=== PATIENT | female | born 1990 | race American Indian/Alaskan Native ===

== ENCOUNTER 2016-12-28 13:09 | Emergency (ER) | payer MEDICAID ==
[2016-12-28 13:17] VITALS: BP 116/84
[2016-12-28] MEDS ORDERED: DUONEB 0.5 MG-3 MG/3 ML SOLN IH ONE (13:18)
--- NOTE | 2016-12-28 14:25 | XRay Report ---
CHEST 2 VIEWS INDICATION: Wheezing, cough, shortness of breath. COMPARISON: None similar. FINDINGS: PA and lateral chest radiographs demonstrate normal cardiomediastinal silhouette. Clear lungs. Intact bones. Bilateral nipple piercings. CONCLUSION: No acute disease in the chest. Thank you for the opportunity to participate in this patient's care.
[2016-12-28] MEDS ORDERED: ROCEPHIN IM ONE (15:08)
[2016-12-28] MEDS ORDERED: XYLOCAINE 1% MPF 5 mL INFILTRATI ONE (15:08)
--- NOTE | 2016-12-28 15:21 | Emergency Department Report ---
- General Chief Complaint: Adult Asthma Stated Complaint: SOB,PNEUMONIA Time Seen by Provider: 12/28/16 14:54 Source: patient Mode of arrival: Ambulatory Limitations: No Limitations - History of Present Illness Initial Comments: Patient comes into the ER today with complaints of wheezing, shortness of breath , sinus congestion for the past couple days. Patient states that last night she started getting very hard to breathe with wheezing. Patient denies any history of asthma. Patient does state that she has been coughing up some green phlegm with the cough. MD Complaint: cough, sore throat, rhinorrhea, nasal congestion -: days(s) (2) Severity: moderate Associated Symptoms: chills, rhinorrhea, nasal congestion, sore throat, cough, shortness of breath. denies: chest pain, abdominal pain, nausea, vomiting, diarrhea, dysuria Treatments Prior to Arrival: none - Related Data Previous Rx's Medication Instructions Recorded Last Taken Type ALBUTEROL Inhaler [ProAir HFA 2 puff IH QID PRN #1 inhalation 12/28/16 Unknown Rx Inhaler] Amoxicillin 1,000 mg PO BID #40 capsule 12/28/16 Unknown Rx predniSONE [Deltasone] 60 mg PO QDAY #15 tab 12/28/16 Unknown Rx Allergies Allergy/AdvReac Type Severity Reaction Status Date / Time No Known Allergies Allergy Verified 12/28/16 13:10 ED Review of Systems ROS: Stated complaint: SOB,PNEUMONIA Other details as noted in HPI Constitutional: denies: chills, fever Eyes: denies: eye pain, eye discharge, vision change ENT: throat pain, congestion. denies: ear pain Respiratory: cough, shortness of breath, wheezing. denies: SOB with exertion Cardiovascular: denies: chest pain, palpitations, edema, syncope Endocrine: no symptoms reported Gastrointestinal: denies: abdominal pain, nausea, diarrhea Genitourinary: denies: urgency, dysuria, discharge Musculoskeletal: denies: back pain, joint swelling, arthralgia Skin: denies: rash, lesions Neurological: denies: headache, weakness, paresthesias Psychiatric: denies: anxiety, depression Hematological/Lymphatic: denies: easy bleeding, easy bruising ED Past Medical Hx - Past Medical History Additional medical history: Vaginal delivery x 2 - Surgical History Additional Surgical History: x 3 - Social History Smoking Status: Never Smoker Substance Use Type: None - Medications Home Medications: Home Medications Medication Instructions Recorded Confirmed Last Taken Type ALBUTEROL Inhaler [ProAir HFA 2 puff IH QID PRN #1 inhalation 12/28/16 Unknown Rx Inhaler] Amoxicillin 1,000 mg PO BID #40 capsule 12/28/16 Unknown Rx predniSONE [Deltasone] 60 mg PO QDAY #15 tab 12/28/16 Unknown Rx ED Physical Exam - General Limitations: No Limitations General appearance: alert, in no apparent distress - Head Head exam: Present: atraumatic, normocephalic - Eye Eye exam: Present: normal appearance - ENT ENT exam: Present: mucous membranes moist, TM's normal bilaterally, normal external ear exam, other (bilateral nasal mucosa redness and swelling of turbinates. Bilateral posterior pharynx erythema without exudate.) - Neck Neck exam: Present: normal inspection, full ROM. Absent: tenderness, meningismus, lymphadenopathy - Respiratory Respiratory exam: Present: normal lung sounds bilaterally, wheezes, rhonchi. Absent: respiratory distress, rales, chest wall tenderness, accessory muscle use , decreased breath sounds - Cardiovascular Cardiovascular Exam: Present: regular rate, normal rhythm. Absent: systolic murmur, diastolic murmur, rubs, gallop - GI/Abdominal GI/Abdominal exam: Present: soft, normal bowel sounds - Extremities Exam Extremities exam: Present: normal inspection - Back Exam Back exam: Present: normal inspection - Neurological Exam Neurological exam: Present: alert, oriented X3 - Psychiatric Psychiatric exam: Present: normal affect, normal mood - Skin Skin exam: Present: warm, dry, intact, normal color. Absent: rash ED Course Vital Signs 12/28/16 13:13 Temperature 98.3 F Pulse Rate 112 H Respiratory 22 Rate Blood Pressure 116/84 O2 Sat by Pulse 100 Oximetry ED Medical Decision Making - Radiology Data Radiology results: report reviewed No acute process noted on chest x-ray - Medical Decision Making Patient is nontoxic and hemodynamically stable. Patient initially given albuterol breathing treatment on arrival to the ER for her wheezing. Patient does state that the breathing treatment helped her a lot with the wheezing. Due to the presence of productive cough and no past history of asthma, I believe this is more related to infectious etiology rather than asthma. Patient was given Rocephin 1 g IM here in the ER to expedite recovery time. I will continue patient on outpatient course of antibiotics as well as steroids and an inhaler. Patient is stable for discharge and is agreement with treatment plan. Critical care attestation.: If time is entered above; I have spent that time in minutes in the direct care of this critically ill patient, excluding procedure time. ED Disposition Clinical Impression: Bronchitis, Wheezing Sinusitis Qualifiers: Sinusitis location: unspecified location Chronicity: acute Recurrence: not specified as recurrent Qualified Code(s): J01.90 - Acute sinusitis, unspecified Disposition: DISCHARGED TO HOME OR SELFCARE Is pt being admited?: No Does the pt Need Aspirin: No Condition: Good Instructions: Acute Bronchitis (ED), Pharyngitis (ED), Sinusitis (ED), How to Use a Metered-Dose Inhaler (ED) Prescriptions: ALBUTEROL Inhaler [ProAir HFA Inhaler] 2 puff IH QID PRN #1 inhalation PRN Reason: Shortness Of Breath Amoxicillin 1,000 mg PO BID #40 capsule predniSONE [Deltasone] 60 mg PO QDAY #15 tab Referrals: PRIMARY CARE, [Primary Care Provider] - 3-5 Days Time of Disposition: 15:25
== END 2016-12-28 15:40 | disposition home or self-care (01) ==
LOC: ED 13:09
DX: J40 Bronchitis, not specified as acute or chronic (principal); J01.90 Acute sinusitis, unspecified
CPT/HCPCS: 71020; 96372; 99283; J0696

== ENCOUNTER 2017-06-15 14:33 | Emergency (ER) | payer MEDICAID ==
[2017-06-15 14:47] VITALS: BP 109/73
--- NOTE | 2017-06-15 15:22 | Emergency Department Report ---
- General Chief Complaint: Upper Respiratory Infection Stated Complaint: CHEST PAIN/MORRIS Time Seen by Provider: 06/15/17 15:20 Source: patient Mode of arrival: Ambulatory Limitations: No Limitations - History of Present Illness Initial Comments: 26-year-old female past medical history smoker presents with complaint of sinus congestion nonproductive cough and slightly sore throat for approximately 1-1/2 weeks. Patient is awake alert and oriented 3 does not appear to be in acute distress no audible wheezing or stridor on clinical exam. Patient speaking in full sentences. Denies using any tafy-kje-abwbbth medicines for her symptoms. States that she has had intermittent URIs and sinusitis diagnoses over the last year. States that these symptoms have been ongoing for approximately 6-7 days. Denies palpitations shortness of breath nausea or vomiting. Denies recent travel. States she has multiple sick contacts in her workplace. States her primary symptom is of nasal congestion and slightly sore throat. Denies any pleuritic chest pain and denies being on control denies any history of PE I clarified on interview the patient does not have chest pain. MD Complaint: cough Onset/Timin -: month(s) Severity scale (0 -10): 4 Quality: aching Consistency: intermittent Worsens With: nothing Context: sick contacts Associated Symptoms: rhinorrhea, nasal congestion, sore throat, cough Treatments Prior to Arrival: none - Related Data Previous Rx's Medication Instructions Recorded Last Taken Type ALBUTEROL Inhaler [ProAir HFA 2 puff IH QID PRN #1 inhalation 12/28/16 Unknown Rx Inhaler] Amoxicillin 1,000 mg PO BID #40 capsule 12/28/16 Unknown Rx predniSONE [Deltasone] 60 mg PO QDAY #15 tab 12/28/16 Unknown Rx ALBUTEROL Inhaler [ProAir HFA 2 puff IH QID PRN #1 inhalation 06/15/17 Unknown Rx Inhaler] Amoxicillin/Potassium Clav 1 each PO BID #14 tablet 06/15/17 Unknown Rx [Augmentin 875-125 Tablet] Fluticasone [Flonase] 1 spray NS QDAY PRN #1 bottle 06/15/17 Unknown Rx Naproxen 500 mg PO BID PRN #30 tablet 06/15/17 Unknown Rx Phenylephrine/Dm/Acetaminop/GG 10 ml PO QID PRN #1 liquid 06/15/17 Unknown Rx [Mucinex Papp-Fir-Ruvhfawjwk Lq] Allergies Allergy/AdvReac Type Severity Reaction Status Date / Time No Known Allergies Allergy Verified 12/28/16 13:10 ED Review of Systems ROS: Stated complaint: CHEST PAIN/MORRIS Other details as noted in HPI Constitutional: malaise. denies: chills, fever Eyes: denies: eye pain, eye discharge, vision change ENT: throat pain. denies: ear pain Respiratory: denies: cough, shortness of breath, wheezing Cardiovascular: denies: chest pain, palpitations Endocrine: no symptoms reported Gastrointestinal: denies: abdominal pain, nausea, diarrhea Genitourinary: denies: urgency, dysuria, discharge Musculoskeletal: denies: back pain, joint swelling, arthralgia Skin: denies: rash, lesions Neurological: denies: headache, weakness, paresthesias Psychiatric: denies: anxiety, depression Hematological/Lymphatic: denies: easy bleeding, easy bruising ED Past Medical Hx - Past Medical History Additional medical history: Vaginal delivery x 2 - Surgical History Additional Surgical History: x 3 - Social History Smoking Status: Never Smoker Substance Use Type: None - Medications Home Medications: Home Medications Medication Instructions Recorded Confirmed Last Taken Type ALBUTEROL Inhaler [ProAir HFA 2 puff IH QID PRN #1 inhalation 12/28/16 Unknown Rx Inhaler] Amoxicillin 1,000 mg PO BID #40 capsule 12/28/16 Unknown Rx predniSONE [Deltasone] 60 mg PO QDAY #15 tab 12/28/16 Unknown Rx ALBUTEROL Inhaler [ProAir HFA 2 puff IH QID PRN #1 inhalation 06/15/17 Unknown Rx Inhaler] Amoxicillin/Potassium Clav 1 each PO BID #14 tablet 06/15/17 Unknown Rx [Augmentin 875-125 Tablet] Fluticasone [Flonase] 1 spray NS QDAY PRN #1 bottle 06/15/17 Unknown Rx Naproxen 500 mg PO BID PRN #30 tablet 06/15/17 Unknown Rx Phenylephrine/Dm/Acetaminop/GG 10 ml PO QID PRN #1 liquid 06/15/17 Unknown Rx [Mucinex Kdqr-Xnh-Ivudtahpds Lq] ED Physical Exam - General Limitations: No Limitations General appearance: alert, in no apparent distress - Head Head exam: Present: atraumatic, normocephalic - Eye Eye exam: Present: normal appearance, PERRL, EOMI - ENT ENT exam: Present: mucous membranes moist - Neck Neck exam: Present: normal inspection - Respiratory Respiratory exam: Present: normal lung sounds bilaterally. Absent: respiratory distress - Cardiovascular Cardiovascular Exam: Present: regular rate, normal rhythm. Absent: systolic murmur, diastolic murmur, rubs, gallop - GI/Abdominal GI/Abdominal exam: Present: soft, normal bowel sounds - Extremities Exam Extremities exam: Present: normal inspection - Back Exam Back exam: Present: normal inspection - Neurological Exam Neurological exam: Present: alert, oriented X3 - Psychiatric Psychiatric exam: Present: normal affect, normal mood - Skin Skin exam: Present: warm, dry, intact, normal color. Absent: rash ED Course Vital Signs 06/15/17 14:42 Temperature 98.2 F Pulse Rate 96 H Respiratory 20 Rate Blood Pressure 109/73 O2 Sat by Pulse 97 Oximetry ED Medical Decision Making - Medical Decision Making A/P: Bronchitis/sinusitis, reactive airway disease 1-treat patient symptomatically with Mucinex, albuterol inhaler, naproxen, Flonase 2-follow up with primary care doctor 3-I advised patient to reduce her smoking as this is likely contributing to her symptoms 4- course of Augmentin to empirically cover for sinusitis symptoms as patient has a history of recurrent sinusitis. Critical care attestation.: If time is entered above; I have spent that time in minutes in the direct care of this critically ill patient, excluding procedure time. ED Disposition Clinical Impression: Chronic bronchitis Qualifiers: Chronic bronchitis type: simple Qualified Code(s): J41.0 - Simple chronic bronchitis Disposition: TO HOME OR SELFCARE Is pt being admited?: No Does the pt Need Aspirin: No Condition: Stable Instructions: Sinusitis (ED), Chronic Bronchitis (ED), Reactive Airways Disease (ED) Prescriptions: ALBUTEROL Inhaler [ProAir HFA Inhaler] 2 puff IH QID PRN #1 inhalation PRN Reason: Shortness Of Breath Amoxicillin/Potassium Clav [Augmentin 875-125 Tablet] 1 each PO BID #14 tablet Fluticasone [Flonase] 1 spray NS QDAY PRN #1 bottle PRN Reason: Congestion Naproxen 500 mg PO BID PRN #30 tablet PRN Reason: Pain Phenylephrine/Dm/Acetaminop/GG [Mucinex Gdhw-Icg-Juezbjebfo Lq] 10 ml PO QID PRN #1 liquid PRN Reason: Cough Referrals: [facility]– [place]Note 2[place] [Outside] - 3-5 Days [facility] [Outside] - 3-5 Days ANKIT EDWARDS MD [Staff Physician] - 3-5 Days Forms: Work/School Release Form(ED) Time of Disposition: 16:17
--- NOTE | 2017-06-15 15:47 | XRay Report ---
ROUTINE CHEST, TWO VIEWS: Cough PA and lateral views demonstrate the heart and mediastinal contour to be of normal size and shape. The lungs are clear and fully expanded and the soft tissues and bony structures are normal. IMPRESSION: Normal study.
== END 2017-06-15 16:30 | disposition home or self-care (01) ==
LOC: ED 14:33
DX: J41.0 Simple chronic bronchitis (principal)
CPT/HCPCS: 71020

== ENCOUNTER 2017-12-29 01:09 | Emergency (ER) | payer MEDICAID, OTHER ==
[2017-12-29] MEDS ORDERED: DUONEB *Not for PRN Use IH ONE (02:10)
[2017-12-29] MEDS ORDERED: PROVENTIL IH ONE (02:11)
[2017-12-29 08:16] VITALS: BP 124/78
--- NOTE | 2017-12-31 14:26 | XRay Report ---
FINAL REPORT EXAM: XR CHEST ROUTINE 2V HISTORY: cough; shortness of breath TECHNIQUE: PA and lateral chest radiographs PRIORS: None. FINDINGS: No mediastinal shift. Cardiac silhouette is not enlarged. No pneumothorax, effusion, or focal pulmonary opacity. No acute skeletal finding. Nipple jewelry noted. IMPRESSION: No focal pulmonary opacity.
== END 2017-12-29 08:16 | disposition left against medical advice (07) ==
LOC: ED 01:09
DX: R06.00 Dyspnea, unspecified (principal); Z53.21 Procedure and treatment not carried out due to patient leaving prior to being seen by health care provider
CPT/HCPCS: 71046

== ENCOUNTER 2019-07-28 13:02 | Emergency (ER) | payer SELFPAY ==
[2019-07-28 13:21] VITALS: BP 99/75
== END 2019-07-28 14:30 | disposition left against medical advice (07) ==
LOC: ED 13:02
DX: R51 Headache (principal); Z53.21 Procedure and treatment not carried out due to patient leaving prior to being seen by health care provider